=== PATIENT | female | born 1990 | race Two or more races ===

== ENCOUNTER → 2016-10-08 | Outpatient (REF) | payer OTHER ==
[~2016-10-08] MED LIST: MOTR200T44 PO; PRENTAB40 PO; TYLE167L PO
== END ==
LOC: M SFHCLERA 17:25
PROVIDERS: ATTEND Nurse Practitioner Family
DX: R30.0 Dysuria (principal)

== ENCOUNTER → 2018-04-05 | Outpatient (REF) | payer OTHER ==
[2018-04-05 12:39] LABS: HEMATOCRIT 39.8 % (36.0-47.0); HEMOGLOBIN 12.7 g/dl (12.0-15.5); MEAN CORPUSCULAR HEMOGLOBIN 28.9 pg (27.0-33.0); MEAN CORPUSCULAR HGB CONC 31.9 g/dl (32.0-36.5); MEAN CORPUSCULAR VOLUME 90.5 fl (80.0-96.0); PLATELET COUNT, AUTOMATED 376 10^3/uL (150-450); RED CELL DISTRIBUTION WIDTH 12.6 % (11.5-14.5); WHITE BLOOD COUNT 10.8 10^3/uL (4.0-10.0)
[2018-04-05 13:17] LABS: ALBUMIN 3.5 GM/DL (3.2-5.2); ALBUMIN/GLOBULIN RATIO 0.83 (1.00-1.93); ALKALINE PHOSPHATASE 56 U/L (45-117); ALT/SGPT 16 U/L (12-78); ANION GAP 9 MEQ/L (8-16); AST/SGOT 9 U/L (7-37); BILIRUBIN,TOTAL 0.3 MG/DL (0.2-1.0); BLOOD UREA NITROGEN 13 MG/DL (7-18); CALCIUM LEVEL 9.1 MG/DL (8.5-10.1); CARBON DIOXIDE LEVEL 26 MEQ/L (21-32); CHLORIDE LEVEL 106 MEQ/L (98-107); CREATININE FOR GFR 0.73 MG/DL (0.55-1.30); GLOMERULAR FILTRATION RATE > 60.0 (>60); GLUCOSE, FASTING 75 MG/DL (70-100); POTASSIUM SERUM 4.4 MEQ/L (3.5-5.1); SODIUM LEVEL 141 MEQ/L (136-145); TOTAL PROTEIN 7.7 GM/DL (6.4-8.2)
== END ==
LOC: M SFHCPLAZ 10:07
DX: Z00.00 Encounter for general adult medical examination without abnormal findings (principal)

== ENCOUNTER → 2018-05-20 | Outpatient (REF) | payer OTHER | LOC: M LAB REF 13:45 | PROVIDERS: ATTEND Otolaryngology | DX: L72.3 Sebaceous cyst (principal) ==

== ENCOUNTER → 2018-05-24 | Outpatient (CLI) | payer OTHER ==
[~2018-05-24] MED LIST changes: +ISOVUE-370 76% 100ML VIAL (Q9967) As Ordered ONE
--- NOTE | 2018-05-24 16:59 | REP ---
MAXILLOFACIAL CT WITH CONTRAST: HISTORY: Parotid gland neoplasm. CONTRAST: Isovue-370, 75 mL The frontal sinuses are hypoplastic. Minimal mucosal thickening is present in the right maxillary sinus. The remaining sinuses are clear. The ostiomeatal units are patent. The middle and inferior nasal turbinates are partially paradoxical. There is juana bullosa of the left middle nasal turbinate. There is mild deviation of the nasal septum to the right. The cribriform plate, medial bustos of the orbits and optic canals are intact. The carotid canals form a segment of the posterolateral bustos of the sphenoid sinus. The sphenoid sinus septum inserts into the left internal carotid canal wall. The naso-, zeb- and hypopharynx are normal in appearance. There is asymmetry in the parotid glands with the right being slightly larger than the left. An ill-defined mass approximately 1.3 cm in width is present in the right parotid gland. A 4 mm calcification is present. The left parotid and submandibular glands are normal in size and density. Small lymph nodes less than 1 cm in size are present in the internal jugular chains, posterior triangles, submandibular and submental areas. IMPRESSION: 1. Sinus mucosal thickening as described above. 2. There is an ill-defined 1.7 cm mass in the right parotid gland. A 4 mm calcification is present. MR parotid glands may be helpful for further evaluation. Electronically Signed by Russell Mckeon MD 05/24/2018 05:01 P
== END ==
LOC: M RAD 15:38
PROVIDERS: ATTEND Otolaryngology
DX: D11.0 Benign neoplasm of parotid gland (principal)
CPT/HCPCS: 70487; Q9967

== ENCOUNTER → 2018-07-27 | Outpatient (CLI) | payer OTHER ==
[~2018-07-27] MED LIST changes: -ISOVUE-370 76% 100ML VIAL (Q9967) As Ordered ONE
--- NOTE | 2018-07-27 16:54 | REP ---
BILATERAL MAMMOGRAM WITH 3D TOMOSYNTHESIS, DIAGNOSTIC MAMMOGRAM BILATERAL AND LEFT BREAST ULTRASOUND, BASELINE STUDY: There is a history of palpable lump upper outer quadrant left breast. There is no family history of breast cancer. Palpable lump is marked on the skin with a triangular marker. MLO and CC views of both breasts are performed with 3D tomosynthesis. Additional spot compression views are performed of the upper outer quadrant of the left breast and additional magnification views are performed in the right breast. There is moderately dense fibroglandular tissue bilaterally. I see no definite mass or architectural distortion bilaterally however there are tiny calcifications at the 12 o'clock region of the right breast which are clustered and appear somewhat suspicious. Recommend stereotactic biopsy. Real-time sonographic evaluation of the left breast was performed in the region of the palpable lump. Dense fibroglandular tissue is seen without a cystic or solid nodule. IMPRESSION: ACR 4 suspicious. Clustered microcalcifications in the 12 o'clock region right breast. Recommend stereotactic biopsy. In the left breast upper outer quadrant in the region of the palpable lump there is no mammographic or sonographic evidence of a mass. A negative mammogram and ultrasound should not deter biopsy if there is a clinically suspicious palpable mass present. Clinical correction and followup is recommended. BIRADS 4: BI-RADS/ACR category 4 mammogram. Suspicious Abnormality - biopsy should be considered. This mammogram was interpreted with the aid of an FDA-approved computer-aided detection system. The patient states she had a clinical breast exam in 07/2018. The patient letter being requested is M4. Electronically Signed by Joshua Fountain MD 07/27/2018 05:00 P
== END ==
LOC: M RAD 08:47
PROVIDERS: ATTEND Advanced Practice Midwife
DX: R92.0 Mammographic microcalcification found on diagnostic imaging of breast (principal)
CPT/HCPCS: 76642; 77066; G0279

== ENCOUNTER → 2018-08-17 | Outpatient (CLI) | payer OTHER ==
[~2018-08-17] MED LIST changes: +ACET-861 PO; +LIDOCAINE 1% MDV 20ML VIAL As Ordered ONE; +MIRE1IUD IU; +RANI150T PO
--- NOTE | 2018-08-17 13:42 | REP ---
SPECIMEN RADIOGRAPHY: The right breast biopsy specimen. HISTORY: Microcalcifications right breast centrally. Comparison mammography July 27, 2018. FINDINGS: Specimen radiography demonstrates microcalcifications dispersed within four of the removed specimens from the target grouping. IMPRESSION: Specimen radiography demonstrates microcalcifications. Electronically Signed by Tariq Wooten MD 08/17/2018 08:25 P
--- NOTE | 2018-08-17 16:03 | REP ---
Digital diagnostic unilateral right breast mammography with CAD: Two views. History: Marker clip placement views. The patient is immediately status post injected needle biopsy for microcalcifications. Comparison mammography July 27, 2018. Findings: CC and true ML views of the right breast demonstrate the marker clip in good position at the site of the sample microcalcifications. Impression: Marker clip in good position. This mammogram was interpreted with the aid of an FDA-approved computer-aided detection system. Electronically Signed by Tariq Wooten MD 08/17/2018 03:55 P
--- NOTE | 2018-08-17 18:06 | REP ---
STEREOTACTIC RIGHT BREAST BIOPSY The procedure was performed under the direct supervision of Dr. Wooten The patient has a history of clustered microcalcifications in the 12 o'clock position of the right breast seen on a previous mammogram dated 07/27 1018. The risks and benefits of the procedure were explained to the patient and informed consent was obtained. A craniocaudal approach was utilized. The calcifications were localized using stereotactic mammographic guidance. 1% Xylocaine was used as a local anesthetic. An 8 gauge, suction assisted Mammotome needle was inserted and 6 core biopsy samples were obtained. Specimen radiograph demonstrates the presence of calcifications to be within the specimen. A marker clip was placed at the biopsy site. The patient tolerated the procedure well and there were no immediate complications. After the appropriate amount of monitored convalescence, the patient was discharged from the department. Reviewed by GLENN Crump 08/17/2018 04:32 P Electronically Signed by Tariq Wooten MD 08/17/2018 05:57 P
== END ==
LOC: M RADPRO 11:38
PROVIDERS: ATTEND Surgery
DX: R92.0 Mammographic microcalcification found on diagnostic imaging of breast (principal)

== ENCOUNTER 2018-09-05 09:30 | Day surgery (SDC) | payer OTHER ==
[~2018-09-05] VITALS: Ht 165.1 cm; Wt 63.4 kg
[~2018-09-05 09:30] MED LIST changes: +BACITRACIN OINT 30GM As Ordered ONE; -LIDOCAINE 1% MDV 20ML VIAL As Ordered ONE; +LIDOCAINE W/EPINEPHRINE 1% 20ML VIAL As Ordered ONE
[2018-09-05] MEDS ORDERED: fentaNYL 100 MCG/2 ML INJECTION (J3010) As Ordered ONE (09:40)
[2018-09-05] MEDS ORDERED: LIDOCAINE 2% INJ 100 MG/5 ML SDV (FOR ANES.) As Ordered ONE (09:40)
[2018-09-05] MEDS ORDERED: dexameTHASONE 4 MG/ML 1ML VIAL (J1100) As Ordered ONE (09:40)
[2018-09-05] MEDS ORDERED: MIDAZOLAM INJ 2 MG/2 ML VIAL (J2250) As Ordered ONE (09:40)
[2018-09-05] MEDS ORDERED: SUCCINYLCHOLINE 100 MG/5 ML SYRINGE (J0330) As Ordered ONE (09:40)
[2018-09-05] MEDS ORDERED: ROCURONIUM BROMIDE 50 MG/5 ML VIAL As Ordered ONE (09:40)
[2018-09-05] MEDS ORDERED: PROPOFOL 200 MG/20 ML VIAL As Ordered ONE ×3 (09:40→11:14)
[2018-09-05 10:36] LABS: URINE PREG TEST NEGATIVE (NEGATIVE)
[2018-09-05] MEDS ORDERED: ONDANSETRON 4MG/2ML VIAL (J2405) As Ordered ONE (12:45)
[2018-09-05] MEDS ORDERED: KETOROLAC 60 MG/2 ML VIAL (J1885) As Ordered ONE (12:47)
[2018-09-05] MEDS ORDERED: LR 1,000 ML IV SCH ×2 (13:30)
[2018-09-05] MEDS ORDERED: NORCO, ANEXSIA 5/325MG TABLET (HYDROcodone/ACETAMINOPHEN) PO PRN (13:30)
[2018-09-05] MEDS ORDERED: ONDANSETRON 4MG/2ML VIAL (J2405) IV PRN (13:30)
[2018-09-05] MEDS ORDERED: fentaNYL 100 MCG/2 ML INJECTION (J3010) IV PRN (13:30)
[2018-09-05] MEDS ORDERED: ACETAMINOPH W/CODEINE #3 TAB UD PO PRN (13:45)
[2018-09-05 14:50] VITALS: BP 104/55
--- NOTE | 2018-09-06 08:54 | RO ---
DATE OF PROCEDURE: 09/05/2018 PREOPERATIVE DIAGNOSIS: Right parotid tumor. POSTOPERATIVE DIAGNOSIS: Right parotid tumor. OPERATIVE PROCEDURE: Right total parotidectomy with facial nerve preservation. SURGEON: Chuck Queen MD [facility] CULTURIST: ANESTHESIA: General. FINDINGS: There was a tumor, which was medial to the lower branches of the facial nerve. DESCRIPTION OF PROCEDURE: Under general anesthesia with the patient intubated, the patient was prepped and draped in the usual manner. I used a facial nerve monitor during the procedure. I marked out the incision. Electrodes were attached. I made an incision dividing skin and subcutaneous tissues. I dissected the tissues off of the parotid. Bleeding controlled with bipolar and unipolar cautery. I then dissected down and went anterior to the external auditory canal and anterior to the sternocleidomastoid muscle. I identified the facial nerve. The above findings were seen. Using gentle dissection, I dissected the tissues off of the facial nerve , followed the facial nerve anterior inferior, and then I dissected the tumor, it from the nerve. I then dissected inferiorly around the tumor. I was then able to mobilize the tumor between the branches of the nerve and then dissected it laterally, manipulating the tumor laterally. I dissected vessels off of the tumor as well as the branches of the nerve. Once this was done, then anteriorly I went around the tumor and dissected it again from the facial nerve. The nerve was stimulated with a stimulator during the procedure. The nerve was intact. I delivered the tumor from the wound. Bleeding controlled with bipolar cautery. I was going to do an abdominal fat graft, but since it was a deeper tumor, I decided not to do that. I then put in a 1/4-inch [place] drain. The wound was closed with interrupted #4-0 Monocryl and #5-0 nylon. Less than 20 mL estimated blood loss. Patient's wound was dressed. Patient extubated and transferred to the recovery room in excellent condition.
== END 2018-09-05 15:03 | disposition home or self-care (01) ==
LOC: M SDC 09:30
PROVIDERS: ATTEND Otolaryngology
DX: D11.0 Benign neoplasm of parotid gland (principal); K21.9 Gastro-esophageal reflux disease without esophagitis; Z79.899 Other long term (current) drug therapy
CPT/HCPCS: 42420; 84703; 88307; J0330; J1100; J1885; J2250; J2405; J3010

== ENCOUNTER → 2020-11-27 | Outpatient (CLI) | payer OTHER ==
[~2020-11-27] MED LIST changes: -BACITRACIN OINT 30GM As Ordered ONE; -LIDOCAINE W/EPINEPHRINE 1% 20ML VIAL As Ordered ONE
[2020-11-27 13:18] LABS: HEMATOCRIT 41.2 % (36.0-47.0); HEMOGLOBIN 13.5 g/dl (12.0-15.5); MEAN CORPUSCULAR HEMOGLOBIN 30.5 pg (27.0-33.0); MEAN CORPUSCULAR HGB CONC 32.8 g/dl (32.0-36.5); PLATELET COUNT, AUTOMATED 292 10^3/uL (150-450); RED BLOOD COUNT 4.43 10^6/uL (4.00-5.40); WHITE BLOOD COUNT 8.7 10^3/uL (4.0-10.0)
[2020-11-27 14:07] LABS: ALBUMIN 4.2 GM/DL (3.2-5.2); ALT/SGPT 20 U/L (12-78); BILIRUBIN,TOTAL 0.4 MG/DL (0.2-1.0); BLOOD UREA NITROGEN 11 MG/DL (7-18); CALCIUM LEVEL 9.3 MG/DL (8.5-10.1); CARBON DIOXIDE LEVEL 25 MEQ/L (21-32); CHLORIDE LEVEL 108 MEQ/L (98-107); CREATININE FOR GFR 0.64 MG/DL (0.55-1.30); FERRITIN 76 NG/ML (8-252); GLOMERULAR FILTRATION RATE > 60.0 (>60); GLUCOSE, FASTING 92 MG/DL (70-100); IRON (FE) 71 UG/DL (50-170); PERCENT SATURATION 22.3 % (13.2-45.0); POTASSIUM SERUM 4.3 MEQ/L (3.5-5.1); SODIUM LEVEL 140 MEQ/L (136-145); THYROID STIMULATING HORMONE 0.984 uIU/ML (0.358-3.740); TOTAL IRON BINDING CAPACITY 319 UG/DL (250-450); TOTAL PROTEIN 7.7 GM/DL (6.4-8.2)
== END ==
LOC: M PLALAB 11:53
PROVIDERS: ATTEND Nurse Practitioner Adult Health
DX: Z00.00 Encounter for general adult medical examination without abnormal findings (principal); R53.83 Other fatigue; Z13.29 Encounter for screening for other suspected endocrine disorder

== ENCOUNTER → 2021-12-03 | Outpatient (CLI) | payer OTHER ==
[2021-12-03 13:41] LABS: HEMATOCRIT 41.1 % (36.0-47.0); HEMOGLOBIN 13.5 g/dl (12.0-15.5); MEAN CORPUSCULAR HEMOGLOBIN 30.5 pg (27.0-33.0); MEAN CORPUSCULAR HGB CONC 32.8 g/dl (32.0-36.5); MEAN CORPUSCULAR VOLUME 92.8 fl (80.0-96.0); PLATELET COUNT, AUTOMATED 277 10^3/uL (150-450); RED BLOOD COUNT 4.43 10^6/uL (4.00-5.40); WHITE BLOOD COUNT 7.6 10^3/uL (4.0-10.0)
[2021-12-03 15:55] LABS: ALBUMIN 4.2 GM/DL (3.2-5.2); ALT/SGPT 16 U/L (12-78); BILIRUBIN,TOTAL 0.3 MG/DL (0.2-1.0); BLOOD UREA NITROGEN 14 MG/DL (7-18); CALCIUM LEVEL 9.9 MG/DL (8.5-10.1); CARBON DIOXIDE LEVEL 27 MEQ/L (21-32); CHLORIDE LEVEL 108 MEQ/L (98-107); CREATININE FOR GFR 0.79 MG/DL (0.55-1.30); FERRITIN 65 NG/ML (8-252); GLOMERULAR FILTRATION RATE > 60.0 (>60); GLUCOSE, FASTING 96 MG/DL (70-100); IRON (FE) 79 UG/DL (50-170); PERCENT SATURATION 23.4 % (13.2-45.0); POTASSIUM SERUM 4.7 MEQ/L (3.5-5.1); SODIUM LEVEL 139 MEQ/L (136-145); THYROID STIMULATING HORMONE 0.927 uIU/ML (0.358-3.740); TOTAL IRON BINDING CAPACITY 337 UG/DL (250-450); TOTAL PROTEIN 8.1 GM/DL (6.4-8.2)
== END ==
LOC: M PLALAB 11:34
PROVIDERS: ATTEND Nurse Practitioner Adult Health
DX: R53.83 Other fatigue (principal); Z80.6 Family history of leukemia; Z13.29 Encounter for screening for other suspected endocrine disorder

== ENCOUNTER → 2023-01-12 | Outpatient (CLI) | payer OTHER ==
[2023-01-12 10:47] LABS: BASO # 0.1 10^3/uL (0.0-0.2); BASO % 0.8 % (0.0-1.0); EOS # 0.6 10^3/uL (0.0-0.5); EOS % 9.8 % (0.0-3.0); HEMATOCRIT 41.8 % (36.0-47.0); HEMOGLOBIN 13.5 g/dl (12.0-15.5); LYMPH # 2.2 10^3/uL (1.5-5.0); LYMPH % 36.2 % (24.0-44.0); MEAN CORPUSCULAR HEMOGLOBIN 30.1 pg (27.0-33.0); MEAN CORPUSCULAR HGB CONC 32.3 g/dl (32.0-36.5); MEAN CORPUSCULAR VOLUME 93.1 fl (80.0-96.0); MONO # 0.4 10^3/uL (0.0-0.8); MONO % 7.3 % (2.0-8.0); NEUTROPHILS # 2.8 10^3/uL (1.5-8.5); NEUTROPHILS % 45.7 % (36.0-66.0); PLATELET COUNT, AUTOMATED 253 10^3/uL (150-450); RED BLOOD COUNT 4.49 10^6/uL (4.00-5.40)
[2023-01-12 11:20] LABS: TOTAL IRON BINDING CAPACITY 302 UG/DL (250-425)
[2023-01-12 11:21] LABS: IRON (FE) 70 UG/DL (50-170); PERCENT SATURATION 23.2 % (13.2-45.0)
[2023-01-12 11:22] LABS: ALKALINE PHOSPHATASE 55 U/L (46-116); ALT/SGPT 11 U/L (7.0-40); AST/SGOT < 8 U/L (<34); BILIRUBIN,TOTAL 0.4 MG/DL (0.3-1.2); BLOOD UREA NITROGEN 13 MG/DL (9-23); CALCIUM LEVEL 9.1 MG/DL (8.5-10.1); CARBON DIOXIDE LEVEL 29 MMOL/L (20-31); CHLORIDE LEVEL 107 MMOL/L (98-107); CREATININE FOR GFR 0.72 MG/DL (0.55-1.30); GLOMERULAR FILTRATION RATE > 60.0 (>60); GLUCOSE, FASTING 85 MG/DL (60-100); POTASSIUM SERUM 4.3 MMOL/L (3.5-5.1); SODIUM LEVEL 141 MMOL/L (136-145); TOTAL PROTEIN 7.2 G/DL (5.7-8.2)
[2023-01-12 11:24] LABS: FERRITIN 50.9 NG/ML (7.3-270.7); THYROID STIMULATING HORMONE 0.946 uIU/ML (0.55-4.78)
== END ==
LOC: M PLALAB 08:35
PROVIDERS: ATTEND Nurse Practitioner Adult Health
DX: Z00.00 Encounter for general adult medical examination without abnormal findings (principal); R53.83 Other fatigue; Z13.29 Encounter for screening for other suspected endocrine disorder; Z80.6 Family history of leukemia